=== PATIENT | female | born 1965 | race Two or more races ===

== ENCOUNTER 2019-07-21 18:59 | Emergency (ER) | payer SELFPAY ==
[2019-07-21 19:19] VITALS: BP 129/75
--- NOTE | 2019-07-21 20:31 | RADIOLOGY REPORT (SQ) ---
EXAM DESCRIPTION: XR CHEST 2 VIEWS COMPLETED DATE/TME: 07/21/2019 19:35 CLINICAL HISTORY: 53 years, Female, breast pain hx breat cancer COMPARISON: None. FINDINGS: Two views of the chest are submitted. Cardiac silhouette appears normal. No focal parenchymal or pleural disease. No acute bony abnormality. There is no significant pulmonary vascular engorgement. IMPRESSION: No evidence of acute cardiopulmonary disease.
== END 2019-07-21 20:35 | disposition left against medical advice (07) ==
LOC: ER 18:59
DX: Z53.21 Procedure and treatment not carried out due to patient leaving prior to being seen by health care provider (principal); N64.4 Mastodynia
CPT/HCPCS: 71046